=== PATIENT | female | born 1935 | race African-American/Black ===

== ENCOUNTER 2016-12-07 19:45 | Inpatient (IN) | payer MEDICARE, MEDICAID ==
[~2016-12-07] VITALS: Ht 157.5 cm; Wt 75.8 kg
[~2016-12-07 19:45] MED LIST: ALBU6.7H INH; ASPI-1035 PO; CLOP75TA2 PO; DIGO250T81 PO; DILT180C69 PO; LEVO125T8 PO; LIP40 PO; METO50TA5 PO; WARF5TAB73 PO
[2016-12-07] MEDS ORDERED: ASPIRIN 81MG TABLET PO STA (20:55)
[2016-12-07] MEDS ORDERED: NITROGLYCERIN 0.4MG TABLET SL SL PRN ×2 (21:00→23:15)
[2016-12-07 21:19] LABS: BASOPHILS % 0.7 % (0.0-2.0); EOSINOPHILS % 0.7 % (0.0-5.0); HEMATOCRIT. 35.9 % (36.0-48.0); HEMOGLOBIN. 12.1 g/dL (12.0-16.0); LYMPHOCYTES % 44.5 % (20.0-50.0); MEAN CORPUSCULAR HEMOGLOBIN 28.3 pg (28.0-32.0); MEAN CORPUSCULAR HGB CONC 33.7 g/dL (31.0-37.0); MEAN CORPUSCULAR VOLUME 83.8 fL (81.0-99.0); MEAN PLATELET VOLUME 7.8 fl (7.4-10.4); MONOCYTES % 6.9 % (2.0-8.0); NEUTROPHILS % 47.2 % (40.0-76.0); PLATELET 201 x1000/uL (130-400); RED BLOOD CELL COUNT 4.28 mill/uL (4.2-5.4); RED CELL DISTRIBUTION WIDTH 14.5 % (11.6-14.6); WHITE BLOOD COUNT 4.4 x1000/uL (4.5-11.0)
[2016-12-07 21:29] LABS: D-DIMER 0.38 mg/L FEU (<0.50); INR 1.1; PARTIAL THROMBOPLASTIN TIME 37.6 sec (24.0-34.0); PROTHROMBIN TIME 11.4 sec
[2016-12-07 21:31] LABS: ALANINE AMINOTRANSFERASE 24 IU/L (13-61); ALBUMIN 3.5 g/dL (3.4-5.0); ANION GAP 13; CARBON DIOXIDE 28 mEq/L (21-32); CHLORIDE 104 mEq/L (98-107); INDEX HEMOLYSI 1 (1-3); INDEX ICTERIC 1 (1-4); INDEX LIPEMIC 1 (1-3); LIPASE 140 IU/L (73-393); UREA NITROGEN BLOOD 18 mg/dL (7-21)
[2016-12-07 21:34] LABS: eGFR 52 mL/min (>60)
[2016-12-07 21:36] LABS: NT PRO B-TYPE NATRIURETIC PEP 1682 pg/mL (5-125); TROPONIN I 0.03 ng/mL (0.00-0.04)
[2016-12-07] MEDS ORDERED: ONDANSETRON HCL 4MG/2ML VIAL IV PRN (23:15)
[2016-12-07] MEDS ORDERED: GUAIFENESIN 200MG/10ML SUGAR FREE UDC PO PRN (23:15)
[2016-12-07] MEDS ORDERED: DIPHENHYDRAMINE 50MG/ML VIAL IV PRN (23:15)
[2016-12-07] MEDS ORDERED: DOCUSATE SODIUM 100MG CAPSULE PO PRN (23:15)
[2016-12-07] MEDS ORDERED: ZOLPIDEM TARTRATE 5MG TABLET PO PRN (23:15)
[2016-12-07] MEDS ORDERED: IPRATROPIUM/ALBUTEROL 0.5-3(2.5)MG/3ML NEB INH PRN (23:15)
[2016-12-07] MEDS ORDERED: TRAMADOL 50MG TABLET PO PRN (23:15)
[2016-12-07] MEDS ORDERED: NA PHOS,M-B/NA PHOS,DI-BA ENEMA 118ML PR PRN (23:15)
[2016-12-07] MEDS ORDERED: MORPHINE SULFATE 2 MG/ML CPJ (NOT FOR IM USE) IV PRN (23:15)
[2016-12-07] MEDS ORDERED: MAGNESIUM/ALUMINUM HYDROXIDE/SIMETHICONE 30ML UDC PO PRN (23:15)
[2016-12-07] MEDS ORDERED: CLONIDINE 0.1MG TABLET PO PRN (23:15)
[2016-12-07 23:38] LABS: CLARITY URINE CLEAR (CLEAR); COLOR URINE YELLOW (YELLOW); GLUCOSE URINE NEGATIVE (NEGATIVE); KETONES URINE NEGATIVE (NEGATIVE); LEUKOCYTE ESTERASE URINE TRACE (NEGATIVE); NITRITE URINE NEGATIVE (NEGATIVE); OCCULT BLOOD URINE NEGATIVE (NEGATIVE); PH URINE 7.5 (4.5-8.0); PROTEIN URINE NEGATIVE (NEGATIVE); SPECIFIC GRAVITY URINE 1.009 (1.005-1.030); UROBILINOGEN URINE 0.2 E.U./dL (0.2-1.0)
[2016-12-07 23:59] LABS: DIGOXIN 0.1 ng/mL (0.9-2.0)
[2016-12-08] VITALS (8 sets, daily range): BP systolic 122–144; BP diastolic 81–89
[2016-12-08 00:34] LABS: SQUAMOUS EPITHELIAL CELL URINE FEW /lpf (RARE/1+)
[2016-12-08 00:36] LABS: BACTERIA URINE NONE SEEN; RBC URINE NONE SEEN /hpf (0-2); WBC URINE 0-2 /hpf (0-2)
[2016-12-08] MEDS ORDERED: LOSA50TA20 PO (01:42)
[2016-12-08] MEDS ORDERED: GABA-531 PO (01:43)
[2016-12-08] MEDS ORDERED: ELIQUIS PO (01:45)
[2016-12-08] MEDS: APIXABAN 5 MG TABLET PO SCH ×2 (05:12→18:34)
[2016-12-08] MEDS: DILTIAZEM HCL 60MG TABLET PO SCH ×5 (05:15→23:35)
[2016-12-08 06:27] LABS: CREATINE KINASE MB FRACTION 1.6 ng/mL (0.5-3.6); TROPONIN I 0.04 ng/mL (0.00-0.04)
[2016-12-08] MEDS ORDERED: ASPIRIN 325MG EC TABLET PO SCH (09:00)
[2016-12-08] MEDS ORDERED: METOPROLOL TARTRATE 25MG TABLET PO SCH (09:00)
[2016-12-08] MEDS: PANTOPRAZOLE SODIUM 40 MG/VIAL IV SCH (09:43)
[2016-12-08] MEDS: ZINC SULFATE 220 MG ( 50 ) CAPSULE PO SCH (09:44)
[2016-12-08] MEDS: LEVOTHYROXINE SODIUM 100MCG TABLET PO SCH (11:29)
[2016-12-08 16:29] LABS: CREATINE KINASE MB FRACTION 1.3 ng/mL (0.5-3.6); TROPONIN I 0.03 ng/mL (0.00-0.04)
[2016-12-08] MEDS: DIGOXIN 250MCG TABLET PO SCH (18:34)
[2016-12-08] MEDS: ATORVASTATIN CALCIUM 40MG TABLET PO SCH (21:08)
[2016-12-09 04:25] VITALS: BP 151/101
[2016-12-09] MEDS: APIXABAN 5 MG TABLET PO SCH ×2 (06:01→17:21)
[2016-12-09] MEDS: LEVOTHYROXINE SODIUM 100MCG TABLET PO SCH (06:01)
[2016-12-09] MEDS: DILTIAZEM HCL 60MG TABLET PO SCH ×4 (06:02→23:55)
[2016-12-09 06:14] LABS: BASOPHILS % 0.7 % (0.0-2.0); EOSINOPHILS % 1.3 % (0.0-5.0); HEMOGLOBIN. 12.3 g/dL (12.0-16.0); LYMPHOCYTES % 52.6 % (20.0-50.0); MEAN CORPUSCULAR HEMOGLOBIN 27.8 pg (28.0-32.0); MEAN CORPUSCULAR HGB CONC 33.2 g/dL (31.0-37.0); MEAN PLATELET VOLUME 7.9 fl (7.4-10.4); MONOCYTES % 12.9 % (2.0-8.0); NEUTROPHILS % 32.5 % (40.0-76.0); PLATELET 176 x1000/uL (130-400); RED BLOOD CELL COUNT 4.41 mill/uL (4.2-5.4); RED CELL DISTRIBUTION WIDTH 14.4 % (11.6-14.6); WHITE BLOOD COUNT 2.7 x1000/uL (4.5-11.0)
[2016-12-09 06:30] LABS: CALCIUM 8.7 mg/dL (8.5-10.1); MAGNESIUM 2.3 mg/dL (1.8-2.4)
[2016-12-09 08:00] VITALS: BP 131/88
[2016-12-09] MEDS: ZINC SULFATE 220 MG ( 50 ) CAPSULE PO SCH (09:34)
[2016-12-09] MEDS: PANTOPRAZOLE SODIUM 40 MG/VIAL IV SCH (09:34)
[2016-12-09] MEDS: ASPIRIN 81MG EC TABLET PO SCH (09:34)
[2016-12-09 12:00] VITALS: BP 142/92
[2016-12-09] MEDS: ACETAMINOPHEN 325MG TABLET PO PRN ×2 (12:05→21:54)
[2016-12-09 16:00] VITALS: BP 143/92
[2016-12-09] MEDS: DIGOXIN 250MCG TABLET PO SCH (17:21)
[2016-12-09 20:00] VITALS: BP 131/83
[2016-12-09] MEDS: ATORVASTATIN CALCIUM 40MG TABLET PO SCH (21:54)
[2016-12-10] VITALS: BP 124/84
[2016-12-10 04:00] VITALS: BP 137/83
[2016-12-10] MEDS: APIXABAN 5 MG TABLET PO SCH (06:05)
[2016-12-10] MEDS: LEVOTHYROXINE SODIUM 100MCG TABLET PO SCH (06:06)
[2016-12-10] MEDS: DILTIAZEM HCL 60MG TABLET PO SCH (06:06)
[2016-12-10] MEDS ORDERED: FAMOTIDINE 20MG TABLET PO SCH (06:45)
[2016-12-10 07:15] LABS: BASOPHILS % 0.3 % (0.0-2.0); EOSINOPHILS % 1.5 % (0.0-5.0); HEMATOCRIT. 39.1 % (36.0-48.0); LYMPHOCYTES % 17.1 % (20.0-50.0); MEAN CORPUSCULAR HEMOGLOBIN 27.5 pg (28.0-32.0); MEAN CORPUSCULAR HGB CONC 33.2 g/dL (31.0-37.0); MEAN CORPUSCULAR VOLUME 82.9 fL (81.0-99.0); MEAN PLATELET VOLUME 8.1 fl (7.4-10.4); MONOCYTES % 12.1 % (2.0-8.0); PLATELET 175 x1000/uL (130-400); RED BLOOD CELL COUNT 4.71 mill/uL (4.2-5.4); RED CELL DISTRIBUTION WIDTH 14.2 % (11.6-14.6)
[2016-12-10 08:00] VITALS: BP 131/86
[2016-12-10 08:17] LABS: CALCIUM 9.3 mg/dL (8.5-10.1)
[2016-12-10] MEDS: ZINC SULFATE 220 MG ( 50 ) CAPSULE PO SCH (08:51)
[2016-12-10] MEDS: ASPIRIN 81MG EC TABLET PO SCH (08:51)
[2016-12-10 12:15] VITALS: BP 131/86
== END 2016-12-10 12:58 | disposition home health service (06) | DRG 391 ==
LOC: ER 22:49 → 5WST 23:04
PROVIDERS: ADMIT Internal Medicine; ATTEND Internal Medicine
DX: K21.9 Gastro-esophageal reflux disease without esophagitis (principal); I50.33 Acute on chronic diastolic (congestive) heart failure; I11.0 Hypertensive heart disease with heart failure; E03.9 Hypothyroidism, unspecified; I48.2 Chronic atrial fibrillation; M54.30 Sciatica, unspecified side; E78.5 Hyperlipidemia, unspecified; E78.00 Pure hypercholesterolemia, unspecified; R07.89 Other chest pain; F17.210 Nicotine dependence, cigarettes, uncomplicated; I25.10 Atherosclerotic heart disease of native coronary artery without angina pectoris; I25.2 Old myocardial infarction; Z79.82 Long term (current) use of aspirin; Z86.718 Personal history of other venous thrombosis and embolism; Z98.61 Coronary angioplasty status; Z88.0 Allergy status to penicillin; Z88.2 Allergy status to sulfonamides; Z79.899 Other long term (current) drug therapy; Z82.49 Family history of ischemic heart disease and other diseases of the circulatory system
CPT/HCPCS: 36415; 71010; 80048; 80053; 80061; 80162; 81001; 82550; 82553; 83036; 83520; 83605; 83690; 83735; 83880; 84484; 85025; 85379; 85610; 85730; 93005; 99285; C9113

== ENCOUNTER 2018-03-06 11:18 | Emergency (ER) | payer MEDICARE, MEDICAID ==
[~2018-03-06] VITALS: Ht 167.6 cm; Wt 77.0 kg
[~2018-03-06 11:18] MED LIST changes: -ALBU6.7H INH; -ASPI-1035 PO; +ASPI-1159 PO; -CLOP75TA2 PO; +ELIQUIS PO; +GABA-531 PO; +LOSA50TA20 PO; -METO50TA5 PO; -WARF5TAB73 PO
[2018-03-06 12:09] LABS: CLARITY URINE CLOUDY (CLEAR); COLOR URINE DARK YELLOW (YELLOW); KETONES URINE TRACE (NEGATIVE); LEUKOCYTE ESTERASE URINE TRACE (NEGATIVE); NITRITE URINE NEGATIVE (NEGATIVE); OCCULT BLOOD URINE NEGATIVE (NEGATIVE); PH URINE 5.5 (4.5-8.0); PROTEIN URINE NEGATIVE (NEGATIVE); SPECIFIC GRAVITY URINE 1.015 (1.005-1.030)
[2018-03-06] MEDS ORDERED: SODIUM CHLORIDE 0.9% 1,000 ML IV ONE (13:15)
[2018-03-06 15:04] LABS: BASOPHILS % 0.9 % (0.0-2.0); EOSINOPHILS % 0.2 % (0.0-5.0); HEMATOCRIT. 35.4 % (36.0-48.0); HEMOGLOBIN. 11.6 g/dL (12.0-16.0); LYMPHOCYTES % 42.8 % (20.0-50.0); MEAN CORPUSCULAR HEMOGLOBIN 26.9 pg (28.0-32.0); MEAN CORPUSCULAR VOLUME 82.1 fL (81.0-99.0); MEAN PLATELET VOLUME 7.8 fl (7.4-10.4); MONOCYTES % 10.8 % (2.0-8.0); NEUTROPHILS % 45.3 % (40.0-76.0); PLATELET 207 x1000/uL (130-400); RED BLOOD CELL COUNT 4.31 mill/uL (4.2-5.4); RED CELL DISTRIBUTION WIDTH 15.2 % (11.6-14.6)
[2018-03-06 15:07] LABS: CHLORIDE 109 mEq/L (98-107)
[2018-03-06 15:31] LABS: DIGOXIN < 0.1 ng/mL (0.9-2.0)
[2018-03-06] MEDS ORDERED: AZITHROMYCIN 500 MG TABLET PO ONE (17:00)
[2018-03-06] MEDS ORDERED: FLUCONAZOLE 100MG TABLET PO ONE (17:00)
[2018-03-06 17:51] VITALS: BP 112/82
[2018-03-11 14:19] LABS: CHLAMYDIA TRACHOMATIS NAA Negative (Negative); NEISSERIA GONORRHOEAE NAA Negative (Negative)
== END 2018-03-06 17:55 | disposition home or self-care (01) ==
LOC: ER 11:52
DX: N39.0 Urinary tract infection, site not specified (principal); N76.0 Acute vaginitis; I10 Essential (primary) hypertension; I25.2 Old myocardial infarction; M81.0 Age-related osteoporosis without current pathological fracture; F17.200 Nicotine dependence, unspecified, uncomplicated; Z86.718 Personal history of other venous thrombosis and embolism; Z79.01 Long term (current) use of anticoagulants; Z90.49 Acquired absence of other specified parts of digestive tract; Z88.0 Allergy status to penicillin; Z88.2 Allergy status to sulfonamides
CPT/HCPCS: 36415; 80053; 80162; 81003; 83690; 85025; 87210; 87491; 87591; 99284; J7030

== ENCOUNTER 2018-03-17 11:29 | Emergency (ER) | payer MEDICARE, MEDICAID ==
[~2018-03-17] VITALS: Ht 170.2 cm; Wt 79.0 kg
[2018-03-17 13:21] LABS: CLARITY URINE CLEAR (CLEAR); COLOR URINE YELLOW (YELLOW); KETONES URINE TRACE (NEGATIVE); LEUKOCYTE ESTERASE URINE NEGATIVE (NEGATIVE); NITRITE URINE NEGATIVE (NEGATIVE); OCCULT BLOOD URINE NEGATIVE (NEGATIVE); PH URINE 5.5 (4.5-8.0); PROTEIN URINE TRACE (NEGATIVE); SPECIFIC GRAVITY URINE 1.011 (1.005-1.030); UROBILINOGEN URINE 0.2 E.U./dL (0.2-1.0)
[2018-03-17 14:42] VITALS: BP 122/88
== END 2018-03-17 15:16 | disposition home or self-care (01) ==
LOC: ER 15:13
DX: N30.00 Acute cystitis without hematuria (principal); B96.89 Other specified bacterial agents as the cause of diseases classified elsewhere
CPT/HCPCS: 81003; 99283

== ENCOUNTER → 2021-06-01 | Day surgery (SDC) | payer MEDICARE, MEDICAID ==
[~2021-06-01] MED LIST changes: +ACETAMINOPHEN 325MG TABLET PO PRN; -ASPI-1159 PO; +ASPI-1497 PO; +ATROPINE SULFATE 1MG/10ML SYR IV PRN; +DIGO250T PO; -DIGO250T81 PO; +DILT180C66 PO; -DILT180C69 PO; +FENTANYL CITRATE/PF 50MCG/ML 2ML VIAL ONE; -GABA-531 PO; +GABA-532 PO; +HYDRALAZINE 20MG/ML VIAL ONE; +IODIXANOL 320MG/ML 100 ML BOTTLE IV ONE; +LIDOCAINE HCL 1% 20ML VIAL (Pyxis) INJ ONE; +LORA10TA7 PO; -LOSA50TA20 PO; +LOSA50TA41 PO; +MIDAZOLAM HCL 2 MG/2 ML VIAL ONE; +OMEP40CA12 PO; +ONDANSETRON HCL 4MG/2ML INJ IV PRN
== END | disposition home or self-care (01) ==
LOC: CCL 06:40
PROVIDERS: ATTEND Specialist
DX: I73.9 Peripheral vascular disease, unspecified (principal); I25.10 Atherosclerotic heart disease of native coronary artery without angina pectoris; E03.9 Hypothyroidism, unspecified; I08.1 Rheumatic disorders of both mitral and tricuspid valves; I48.20 Chronic atrial fibrillation, unspecified; I11.9 Hypertensive heart disease without heart failure; Z79.899 Other long term (current) drug therapy; Z98.890 Other specified postprocedural states
CPT/HCPCS: 36246; 75710; C1725; C1760; C1769; C1887; C1893; J0360; J1644; J2250; J3010; J3490; Q9967; 99152; 99153; G0500

== ENCOUNTER 2021-07-05 06:33 | Inpatient (IN) | payer MEDICARE, MEDICAID ==
[~2021-07-05] VITALS: Ht 160 cm; Wt 74.9 kg
[2021-07-05] VITALS (15 sets, daily range): BP systolic 131–183; BP diastolic 59–101
[~2021-07-05 06:33] MED LIST changes: -ACETAMINOPHEN 325MG TABLET PO PRN; -ASPI-1497 PO; -ATROPINE SULFATE 1MG/10ML SYR IV PRN; -DIGO250T PO; -FENTANYL CITRATE/PF 50MCG/ML 2ML VIAL ONE; -GABA-532 PO; -HYDRALAZINE 20MG/ML VIAL ONE; -IODIXANOL 320MG/ML 100 ML BOTTLE IV ONE; -LIDOCAINE HCL 1% 20ML VIAL (Pyxis) INJ ONE; -LIP40 PO; -LOSA50TA41 PO; -MIDAZOLAM HCL 2 MG/2 ML VIAL ONE; -OMEP40CA12 PO; +OMEP40CA20 PO; -ONDANSETRON HCL 4MG/2ML INJ IV PRN
[2021-07-05] MEDS ORDERED: ALEN70TA79 MT (08:02)
[2021-07-05] MEDS ORDERED: FENTANYL CITRATE/PF 50MCG/ML 2ML VIAL ONE (08:32)
[2021-07-05] MEDS ORDERED: MIDAZOLAM HCL 2 MG/2 ML VIAL ONE (08:32)
[2021-07-05] MEDS ORDERED: LIDOCAINE HCL 1% 30ML VIAL (10MG/ML) ONE (08:33)
[2021-07-05] MEDS ORDERED: IODIXANOL 320MG/ML 100 ML BOTTLE IV ONE (08:34)
[2021-07-05] MEDS ORDERED: HEPARIN 1000 UNITS/ML 10ML ONE (08:35)
[2021-07-05] MEDS ORDERED: IOHEXOL-300 100 ML BOTTLE ONE (09:05)
[2021-07-05] MEDS ORDERED: ACETAMINOPHEN 325MG TABLET PO PRN (11:00)
[2021-07-05] MEDS ORDERED: ATROPINE SULFATE 1MG/10ML SYR IV PRN (11:00)
[2021-07-05] MEDS ORDERED: ONDANSETRON HCL 4MG/2ML INJ IV PRN (11:00)
[2021-07-05] MEDS ORDERED: CLOPIDOGREL 75MG TABLET ONE (11:26)
[2021-07-05] MEDS ORDERED: ASPIRIN 325MG EC TABLET PO ONE (11:27)
[2021-07-05] MEDS: LORATADINE 10MG TABLET PO SCH (12:25)
[2021-07-05] MEDS ORDERED: TRAMADOL 50MG TABLET PO PRN (16:30)
[2021-07-05] MEDS ORDERED: CLONIDINE 0.2MG TABLET PO PRN (16:30)
[2021-07-06 01:57] VITALS: BP 125/77
[2021-07-06 03:57] VITALS: BP 139/84
[2021-07-06 05:57] VITALS: BP 127/72
[2021-07-06] MEDS ORDERED: LEVOTHYROXINE SODIUM 125MCG TABLET PO SCH (06:50)
[2021-07-06 07:13] LABS: HEMATOCRIT. 32.1 % (36.0-48.0); HEMOGLOBIN. 10.6 g/dL (12.0-16.0); MEAN CORPUSCULAR HEMOGLOBIN 27.8 pg (28.0-32.0); MEAN CORPUSCULAR VOLUME 84.5 fL (81.0-99.0); MEAN PLATELET VOLUME 8.3 fl (7.4-10.4); PLATELET 180 x1000/uL (130-400); RED CELL DISTRIBUTION WIDTH 14.9 % (11.6-14.6)
[2021-07-06 08:00] VITALS: BP 150/85
[2021-07-06] MEDS: LORATADINE 10MG TABLET PO SCH (08:23)
[2021-07-06] MEDS ORDERED: ASPIRIN 325MG TABLET PO SCH (09:00)
[2021-07-06] MEDS ORDERED: APIXABAN 5 MG TABLET PO SCH (09:00)
[2021-07-06] MEDS ORDERED: APIXABAN 2.5 MG TABLET PO SCH (09:00)
[2021-07-06] MEDS ORDERED: CLOPIDOGREL 75MG TABLET PO SCH (09:00)
[2021-07-06] MEDS ORDERED: DILTIAZEM HCL 180MG CAPSULE CD 24HR PO SCH (09:00)
[2021-07-06 10:00] VITALS: BP 135/85
[2021-07-06] MEDS ORDERED: POTASSIUM BICARB/CIT ACID 25 MEQ TABLET.EFF PO SCH (11:00)
[2021-07-06 12:19] LABS: PLATELET ESTIMATE NORMAL
[2021-07-06 12:35] VITALS: BP 126/72
== END 2021-07-06 12:40 | disposition home or self-care (01) | DRG 253 ==
LOC: CCL 06:33 → 3WST 06:34
PROVIDERS: ADMIT Specialist; ATTEND Specialist
PROC: 047K3DZ Dilation of Right Femoral Artery with Intraluminal Device, Percutaneous Approach (ICD-10-PCS; principal; 2021-07-05)
PROC: 047H3DZ Dilation of Right External Iliac Artery with Intraluminal Device, Percutaneous Approach (ICD-10-PCS; 2021-07-05)
PROC: 04FH3ZZ Fragmentation of Right External Iliac Artery, Percutaneous Approach (ICD-10-PCS; 2021-07-05)
PROC: 04FK3ZZ Fragmentation of Right Femoral Artery, Percutaneous Approach (ICD-10-PCS; 2021-07-05)
PROC: B41FYZZ Fluoroscopy of Right Lower Extremity Arteries using Other Contrast (ICD-10-PCS; 2021-07-05)
PROC: B41CYZZ Fluoroscopy of Pelvic Arteries using Other Contrast (ICD-10-PCS; 2021-07-05)
DX: I70.211 Atherosclerosis of native arteries of extremities with intermittent claudication, right leg (principal); I70.92 Chronic total occlusion of artery of the extremities; I48.20 Chronic atrial fibrillation, unspecified; E03.9 Hypothyroidism, unspecified; E78.5 Hyperlipidemia, unspecified; I08.1 Rheumatic disorders of both mitral and tricuspid valves; K21.9 Gastro-esophageal reflux disease without esophagitis; I70.8 Atherosclerosis of other arteries; I10 Essential (primary) hypertension; I25.10 Atherosclerotic heart disease of native coronary artery without angina pectoris; I25.2 Old myocardial infarction; Z88.2 Allergy status to sulfonamides; Z88.5 Allergy status to narcotic agent; Z79.01 Long term (current) use of anticoagulants; Z88.0 Allergy status to penicillin; Z79.899 Other long term (current) drug therapy
CPT/HCPCS: 36415; 37221; 37226; 75710; 80048; 85025; 85347; C1725; C1760; C1769; C1887; C1893; C1894; J1644; J2250; J3010; J3490; Q9967

== ENCOUNTER 2023-11-29 20:20 | Emergency (ER) | payer MEDICARE, MEDICAID ==
[~2023-11-29] VITALS: Ht 162.6 cm; Wt 59.0 kg
[~2023-11-29 20:20] MED LIST changes: +APIX5TAB PO; -ELIQUIS PO; +FURO-151 PO; +LEVO100T9 PO; -LEVO125T8 PO; -LORA10TA7 PO; +LOSA100T33 PO; +POTA-354 PO
[2023-11-29 20:27] VITALS: TEMP 98.4; O2SAT 100
[2023-11-29 22:05] LABS: BASOPHILS % 0.5 % (0.0-2.0); EOSINOPHILS % 0.7 % (0.0-5.0); HEMATOCRIT. 32.3 % (36.0-48.0); HEMOGLOBIN. 10.6 g/dL (12.0-16.0); MEAN CORPUSCULAR HGB CONC 32.8 g/dL (31.0-37.0); MEAN CORPUSCULAR VOLUME 85.3 fL (81.0-99.0); MEAN PLATELET VOLUME 7.9 fl (7.4-10.4); MONOCYTES % 10.6 % (2.0-8.0); NEUTROPHILS % 72.2 % (40.0-76.0); PLATELET 206 x1000/uL (130-400); RED BLOOD CELL COUNT 3.79 mill/uL (4.2-5.4); RED CELL DISTRIBUTION WIDTH 16.3 % (11.6-14.6); WHITE BLOOD COUNT 4.7 x1000/uL (4.5-11.0)
[2023-11-29 22:24] LABS: ALANINE AMINOTRANSFERASE 93 IU/L (10-49); ALBUMIN 4.3 g/dL (3.2-4.8); ASPARTATE AMINOTRANSFERASE 93 IU/L (<34); BILIRUBIN TOTAL 0.8 mg/dL (0.1-1.0); CALCIUM 8.7 mg/dL (8.7-10.4); CARBON DIOXIDE 24 mEq/L (21-32); CHLORIDE 105 mEq/L (98-107); CREATININE 1.8 mg/dL (0.6-1.0); GLUCOSE 107 mg/dL (70-105); PROTEIN TOTAL 7.7 g/dL (6.0-8.3); SODIUM 137 mEq/L (136-145); UREA NITROGEN BLOOD 21 mg/dL (9-23)
[2023-11-29 22:26] LABS: TROPONIN I HIGH SENSITIVITY 98 ng/L (3.0-34)
[2023-11-30 02:38] VITALS: RESP 20
[2023-11-30 06:58] VITALS: BP 143/75; PULSE 70
== END 2023-11-30 02:30 | disposition admitted as inpatient to this hospital (09) ==
LOC: ER 20:20 → EDBEDREQTM 11-30 00:56 → EDBEDREQ 11-30 00:56 → ER 11-30 02:30
DX: R79.89 Other specified abnormal findings of blood chemistry (principal); R55 Syncope and collapse; I10 Essential (primary) hypertension; I25.2 Old myocardial infarction; Z90.49 Acquired absence of other specified parts of digestive tract; Z90.710 Acquired absence of both cervix and uterus; Z88.2 Allergy status to sulfonamides; Z88.0 Allergy status to penicillin
CPT/HCPCS: 36415; 71045; 80053; 83880; 84484; 85025; 93005; 99291

== ENCOUNTER 2024-10-11 18:41 | Emergency (ER) | payer MEDICARE, MEDICAID ==
[~2024-10-11] VITALS: Ht 165.1 cm; Wt 75.0 kg
[~2024-10-11 18:41] MED LIST changes: +APIX2.5T MT; -APIX5TAB PO; +ASPI-1497 PO; +ATOR40TA70 PO; +CLOP-31 PO; -POTA-354 PO; +T3 PO
[2024-10-11 19:02] VITALS: BP 119/72; PULSE 136; RESP 18; TEMP 98.5; O2SAT 100
[2024-10-11] MEDS ORDERED: IPRATROPIUM/ALBUTEROL 0.5-3(2.5)MG/3ML NEB HHN PRN (21:15)
[2024-10-11] MEDS ORDERED: ENOXAPARIN 40MG/0.4ML SYR SUBCUT SCH (21:15)
[2024-10-11] MEDS ORDERED: ONDANSETRON HCL 4MG/2ML INJ IV PRN (21:15)
[2024-10-11] MEDS ORDERED: HYDROCODONE/ACETAMINOPHEN 10/325MG TABLET PO PRN (21:15)
[2024-10-11] MEDS ORDERED: ACETAMINOPHEN 325MG TABLET PO PRN ×2 (21:15)
[2024-10-11] MEDS ORDERED: SODIUM CHLORIDE 0.9% 1,000 ML IV SCH (21:15)
[2024-10-11] MEDS ORDERED: HYDROCODONE/ACETAMINOPHEN 5/325MG TABLET PO PRN (21:15)
[2024-10-11] MEDS ORDERED: CLONIDINE 0.1MG TABLET PO PRN (21:15)
[2024-10-11] MEDS ORDERED: MAGNESIUM/ALUMINUM HYDROXIDE/SIMETHICONE 30ML UDC PO PRN (21:15)
[2024-10-11] MEDS ORDERED: NALOXONE HCL 0.4MG/ML VIAL IV PRN (21:30)
[2024-10-11] MEDS ORDERED: GUAI-453 MT (21:59)
[2024-10-12] MEDS ORDERED: FURO40TA5 (08:29)
[2024-10-16] MEDS ORDERED: DOXY100C5 PO (09:41)
== END 2024-10-11 22:07 | disposition left against medical advice (07) ==
LOC: ER 18:41
DX: J06.9 Acute upper respiratory infection, unspecified (principal); I11.0 Hypertensive heart disease with heart failure; I50.32 Chronic diastolic (congestive) heart failure; E78.00 Pure hypercholesterolemia, unspecified; E03.9 Hypothyroidism, unspecified; I25.2 Old myocardial infarction; F17.210 Nicotine dependence, cigarettes, uncomplicated; I48.91 Unspecified atrial fibrillation; Z90.710 Acquired absence of both cervix and uterus; Z88.2 Allergy status to sulfonamides; Z90.49 Acquired absence of other specified parts of digestive tract; Z79.899 Other long term (current) drug therapy; Z79.82 Long term (current) use of aspirin; Z86.718 Personal history of other venous thrombosis and embolism; Z79.01 Long term (current) use of anticoagulants; Z79.02 Long term (current) use of antithrombotics/antiplatelets; Z79.890 Hormone replacement therapy; Z88.0 Allergy status to penicillin; Z88.5 Allergy status to narcotic agent; Z53.29 Procedure and treatment not carried out because of patient's decision for other reasons
CPT/HCPCS: 71045; 93005; 99283